=== PATIENT | female | born 1940 | race Caucasian/White ===

== ENCOUNTER 2016-12-06 22:05 | Emergency (ER) | payer MEDICARE, BC ==
[~2016-12-06 22:05] MED LIST: ADVAIR DIS1 PUFF/DO1 IH; ASA325 MG PO; ATIVAN-DPS0.5 MG PO; BROVANA15 MCG/2 M IH; CALCIUM 600 +1 EA14 PO; CEPACOL SORE T1 EAC1 PO; DELSYM30 MG/5 ML PO; DELTASONE DPS1 MG PO; DELTASONE DPS20 MG PO; DULCOLAX5 MG PO; DUONEB DPS3 ML IH; ELAVIL-DPS25 MG PO; LASIX DPS20 MG PO; LEVAQUIN DPS500 MG PO; LEXAPRO DPS10 MG PO; LIDODERM PATC1 PATCH TP; LORTAB 7.5-3251 EACH PO; MAGNESIUM OTC PO; METOPROLOL TART25 MG PO; MIRALAX PACKET17 GM PO; MIRAPEX DPS0.25 MG PO; MUCINEX1200 MG PO; MULTI-VITAMIN1 EACH PO; NEXIUM40 MG PO; POTASSIUM OTC PO; PULMICORT0.5 MG/21 IH; REGLAN DPS5 MG PO; ROBITUSSIN AC D30 ML PO; SENOKOT DPS8.6 MG PO; SENOKOT S1 TAB PO; SURFAK240 MG PO; TESSALON PERLE100 M1 PO; TUMS DPS500 MG PO; TYLENOL DPS325 MG PO; ULTRAM DPS50 MG PO; XANAX DPS0.5 MG PO; ZANAFLEX4 MG PO; ZANTAC DPS150 MG PO
--- NOTE | 2016-12-07 12:40 | ER ---
ADMIT: 12/06/2016 RM/LOC: ER [facility] MR#: [id number] [address] [address] WINDY NIELSEN [address] [place] [address] Emergency Room Report SEX: F AGE: 76 : 1940 DATE: 12/06/2016 For chief complaint, history of present illness, past medical history, medications, allergies, review of systems, including physical exam, please see my T-sheet. INTERIM HISTORY: The patient is a 76-year-old white female, who presents to the emergency room with decreased mental status and confusion. Her granddaughter, who cares for her at home, reports that she has a longstanding history of tracheomalacia and has been transferred to the [facility] many times in the past. She just had her stent cleaned last week and has been put on an antibiotic since. Family reports at 8:45, she was fine and talking. She said she had not been feeling well most of the day, but she was alert, she was talking, she was normal for baseline and at 9:15, granddaughter went to check on her and she was unresponsive where her O2 sats were 70%. They called 911 and brought her in. Since being here, she has remained unresponsive for me. She does have a history of hypercapnia. The patient does awake to deep sternal rub, but does not answer any questions at all for me. She is hypoxic on arrival. PHYSICAL EXAMINATION: VITAL SIGNS: She is on 15 L on a non-rebreather mask, and she has a heart rate of 93, respiratory rate of 19, blood pressure is 126/58, temp is 97.7. LUNGS: Coarse with wheezes throughout. LABORATORY AND IMAGING DATA: The patient was, as soon as possible, placed on BiPAP as this has been kind of the treatment for her in the past. Her CO2 on her ABGs came back at 137, pH was 7.1. WBC count is 11. Chemistries are really unremarkable. INR is 2.5. Chest x-ray actually shows a worsening, possibly a pulmonary edema. She does have congestion chronically with chronic interstitial changes on her chest x-ray. EMERGENCY ROOM COURSE: The patient received an IV. We did initiate BiPAP and ADMIT: 12/06/2016 RM/LOC: ER [facility] MR#: [id number] [address] [address] WINDY NIELSEN [address] [place] [address] Emergency Room Report SEX: F AGE: 76 : 1940 she has normalized her vital signs; blood pressure is 100/60, respiratory rate is 15, pulse rate is 85, pulse ox is 99%. The patient remains unresponsive. I did speak with the transfer center at [facility], Dr. Parada, who has agreed to accept the patient in transfer, who is the splunk developer. IMPRESSION: 1. Hypercapnia. 2. Respiratory distress with unresponsiveness. PLAN: Transfer to [facility]. Arrangements were made. A COBRA form was arranged. The patient is at level 5, with critical care time of approximately 40 minutes. The patient is stabilized at the time of transfer on BiPAP. KEVIN Horvath / Maurizio Long MD / telly JOB #: [id number] CC: Maurizio Long MD, Attending Physician Bigg Reis MD, Family Physician
[2017-02-01] MEDS ORDERED: DUONEB DPS3 ML IH (18:29)
[2017-02-01] MEDS ORDERED: TYLENOL EXTRA500 M1 GT (18:30)
[2017-02-01] MEDS ORDERED: XANAX DPS0.25 MG GT (18:30)
[2017-02-01] MEDS ORDERED: PROVENTIL HFA6.7 GM IH (18:30)
[2017-02-01] MEDS ORDERED: ACETADOTE D200 MG/ML IH (18:35)
[2017-02-01] MEDS ORDERED: AMIODARONE50 MG/1 M1 GT (18:36)
[2017-02-01] MEDS ORDERED: ASA CHILDREN'S81 MG GT (18:37)
[2017-02-01] MEDS ORDERED: VITAMIN C500 M4 GT (18:37)
[2017-02-01] MEDS ORDERED: ELAVIL-DPS25 MG GT (18:37)
[2017-02-01] MEDS ORDERED: FEOSOL-DPS325 MG GT (18:38)
[2017-02-01] MEDS ORDERED: CALTRATE 600 +1 EACH GT (18:38)
[2017-02-01] MEDS ORDERED: LEXAPRO DPS10 MG GT (18:38)
[2017-02-01] MEDS ORDERED: ROBITUSSIN100 MG/5 M GT (18:39)
[2017-02-01] MEDS ORDERED: LASIX DPS20 MG GT (18:39)
[2017-02-01] MEDS ORDERED: LOPRESSOR DPS50 MG GT (18:39)
[2017-02-01] MEDS ORDERED: OXY IR DPS5 MG GT (18:40)
[2017-02-01] MEDS ORDERED: THERA1 EACH GT (18:40)
[2017-02-01] MEDS ORDERED: MIRAPEX0.5 MG GT (18:41)
[2017-02-01] MEDS ORDERED: MIRALAX17 GM GT (18:41)
[2017-02-01] MEDS ORDERED: DELTASONE DPS5 MG GT (18:42)
[2017-02-01] MEDS ORDERED: COUMADIN DPS3 MG GT (18:43)
[2017-02-01] MEDS ORDERED: [UNRECOGNIZED DRUG - OTHER] SQ (18:43)
[2017-02-01] MEDS ORDERED: ZANAFLEX4 MG GT (18:43)
[2017-02-01] MEDS ORDERED: MEROPENEM1 GM IV (18:44)
[2017-02-24] MEDS ORDERED: CORDARONE DPS200 MG GT (18:24)
[2017-02-24] MEDS ORDERED: ELAVIL-DPS25 MG GT (18:24)
[2017-02-24] MEDS ORDERED: XANAX DPS0.25 MG PO (18:24)
[2017-02-24] MEDS ORDERED: ACETADOTE D200 MG/ML IH (18:24)
[2017-02-24] MEDS ORDERED: CALTRATE-600 W600 MG GT (18:25)
[2017-02-24] MEDS ORDERED: ASA CHILDREN'S81 MG GT (18:25)
[2017-02-24] MEDS ORDERED: FORTEO600 MCG/2. SQ (18:26)
[2017-02-24] MEDS ORDERED: LEXAPRO DPS10 MG GT (18:26)
[2017-02-24] MEDS ORDERED: FEOSOL-DPS325 MG GT (18:26)
[2017-02-24] MEDS ORDERED: LASIX DPS40 MG GT (18:27)
[2017-02-24] MEDS ORDERED: ROBITUSSIN100 MG/5 M GT (18:27)
[2017-02-24] MEDS ORDERED: LOPRESSOR DPS50 MG GT (18:28)
[2017-02-24] MEDS ORDERED: DUONEB DPS3 ML IH (18:28)
[2017-02-24] MEDS ORDERED: MIRALAX PACKET17 GM GT (18:28)
[2017-02-24] MEDS ORDERED: OXY IR DPS5 MG GT (18:29)
[2017-02-24] MEDS ORDERED: ZANAFLEX4 MG GT (18:29)
[2017-02-24] MEDS ORDERED: MIRAPEX0.5 MG GT (18:29)
[2017-02-24] MEDS ORDERED: THERA1 EACH PO (18:29)
[2017-02-24] MEDS ORDERED: ASCORBIC ACID500 MG GT (18:30)
[2017-02-24] MEDS ORDERED: PROVENTIL HFA6.7 GM IH (18:30)
[2017-02-24] MEDS ORDERED: TYLENOL EXTRA500 MG GT (18:30)
[2017-02-24] MEDS ORDERED: VITAMIN D31000 UNIT GT (18:31)
[2017-02-24] MEDS ORDERED: COUMADIN DPS3 MG GT (18:31)
[2017-02-24] MEDS ORDERED: COUMADIN1 MG GT (18:32)
[2017-02-24] MEDS ORDERED: COUMADIN6 MG GT (18:33)
[2017-02-24] MEDS ORDERED: TOBRAMYCIN300 MG/5 M IH (18:34)
[2017-02-24] MEDS ORDERED: PREDNISONE10 MG PO (18:36)
== END 2016-12-07 00:20 | disposition short-term general hospital (02) ==
LOC: ER 22:05
PROC: 0T9B70Z Drainage of Bladder with Drainage Device, Via Natural or Artificial Opening (ICD-10-PCS; principal; 2016-12-06)
DX: R06.89 Other abnormalities of breathing (principal); I10 Essential (primary) hypertension; Z88.8 Allergy status to other drugs, medicaments and biological substances; Z79.01 Long term (current) use of anticoagulants; Z79.899 Other long term (current) drug therapy

== ENCOUNTER → 2017-01-09 | Outpatient (CLI) | payer MEDICARE, BC ==
[~2017-01-09] MED LIST changes: +ACETADOTE D200 MG/ML IH; +AMIODARONE50 MG/1 M1 GT; +ASA CHILDREN'S81 MG GT; +ASCORBIC ACID500 MG GT; +CALTRATE 600 +1 EACH GT; +CALTRATE-600 W600 MG GT; +CORDARONE DPS200 MG GT; +COUMADIN DPS3 MG GT; +COUMADIN1 MG GT; +COUMADIN6 MG GT; +DELTASONE DPS5 MG GT; +ELAVIL-DPS25 MG GT; +FEOSOL-DPS325 MG GT; +FORTEO600 MCG/2. SQ; +LASIX DPS20 MG GT; +LASIX DPS40 MG GT; +LEXAPRO DPS10 MG GT; +LOPRESSOR DPS50 MG GT; +MEROPENEM1 GM IV; +MIRALAX PACKET17 GM GT; +MIRALAX17 GM GT; +MIRAPEX0.5 MG GT; +OXY IR DPS5 MG GT; +PREDNISONE10 MG PO; +PROVENTIL HFA6.7 GM IH; +ROBITUSSIN100 MG/5 M GT; +THERA1 EACH GT; +THERA1 EACH PO; +TOBRAMYCIN300 MG/5 M IH; +TYLENOL EXTRA500 M1 GT; +TYLENOL EXTRA500 MG GT; +VITAMIN C500 M4 GT; +VITAMIN D31000 UNIT GT; +XANAX DPS0.25 MG GT; +XANAX DPS0.25 MG PO; +ZANAFLEX4 MG GT; +[UNRECOGNIZED DRUG - OTHER] SQ
== END | disposition home or self-care (01) ==
LOC: RAD.S 10:16
DX: R13.12 Dysphagia, oropharyngeal phase (principal)

== ENCOUNTER 2017-01-23 21:11 | Inpatient (IN) | payer MEDICARE, BC ==
[~2017-01-23] VITALS: Ht 162.6 cm; Wt 61.9 kg
[~2017-01-23 21:11] MED LIST changes: -ACETADOTE D200 MG/ML IH; -AMIODARONE50 MG/1 M1 GT; -ASA CHILDREN'S81 MG GT; -ASCORBIC ACID500 MG GT; -CALTRATE 600 +1 EACH GT; -CALTRATE-600 W600 MG GT; -CORDARONE DPS200 MG GT; -COUMADIN DPS3 MG GT; -COUMADIN1 MG GT; -COUMADIN6 MG GT; -DELTASONE DPS5 MG GT; -ELAVIL-DPS25 MG GT; -FEOSOL-DPS325 MG GT; -FORTEO600 MCG/2. SQ; -LASIX DPS20 MG GT; -LASIX DPS40 MG GT; -LEXAPRO DPS10 MG GT; -LOPRESSOR DPS50 MG GT; -MEROPENEM1 GM IV; -MIRALAX PACKET17 GM GT; -MIRALAX17 GM GT; -MIRAPEX0.5 MG GT; -OXY IR DPS5 MG GT; -PREDNISONE10 MG PO; -PROVENTIL HFA6.7 GM IH; -ROBITUSSIN100 MG/5 M GT; -THERA1 EACH GT; -THERA1 EACH PO; -TOBRAMYCIN300 MG/5 M IH; -TYLENOL EXTRA500 M1 GT; -TYLENOL EXTRA500 MG GT; -VITAMIN C500 M4 GT; -VITAMIN D31000 UNIT GT; -XANAX DPS0.25 MG GT; -XANAX DPS0.25 MG PO; -ZANAFLEX4 MG GT; -[UNRECOGNIZED DRUG - OTHER] SQ
--- NOTE | 2017-01-24 07:27 | ER ---
ADMIT: 01/23/2017 RM/LOC: ER [facility] MR#: [id number] 2620 [facility] [address] [place], [place] [address] WINDY NIELSEN [address] [facility] [place] [address] Emergency Room Report SEX: F AGE: 76 : 1940 DATE: 01/23/2017 The patient is a 76-year-old female with O2 dependent COPD, hospitalized in November at [facility] for acute on chronic respiratory failure associated with Pseudomonas pneumonia. States early this morning she developed increasing cough, nausea, but no vomiting, fevers, or chills. Discussed case with Dr. Reis, who ultimately requested that she be evaluated, but the patient was reluctant due to her frequent hospitalizations. Exam remarkable for nontoxic, chronically ill-appearing female on chronic O2, decreased breath sounds with faint expiratory wheeze. Chest x-ray showed bibasilar atelectasis versus infiltrate, improved over recent hospitalization of November of this year. WBC 13.5, hemoglobin 11.7, lactic 2.0, CRP 8.75, glucose 160, procalcitonin 0.06. Troponin less than 0.015. BNP 324, INR 1.35. Blood gas is 5 L on BiPAP, pH 7.38, pCO2 of 65, PO2 of 62. EKG showed sinus tach, rate of [address]-T or Q-wave change. The patient was given 2 DuoNeb, Solu-Medrol, magnesium with improvement. Covered with vancomycin, Zosyn after cultures were obtained. The patient continued to have low O2 sats, requiring increased BiPAP support 14/6 with high-flow O2 to maintain sats in the mid 90s. Discussed case with Dr. Reis, who recommended transfer to [facility]. No beds are available at [facility], therefore discussed case with Dr. oDyle, braille typist at [facility], who agreed to accept and understands that the patient needs rigid interventional bronchoscopy if tracheomalacia stent needs to be replaced. The patient's last replacement was in August 2016, cleaned out most recent hospitalization at [facility] 2 months ago. The patient quit smoking in 2003 after 20-pack year history. The patient also suffers from GERD with dependent PEG feedings. The patient is transferred by [facility] in stable condition. Due to patient's presentation, findings, and intervention, 90 minutes of critical care is warranted. Miles Greer MD/ telly JOB #: [id number] CC: Miles Greer MD, Attending Physician Bigg Reis MD, Family Physician Micaela Doyle MD
--- NOTE | 2017-01-25 16:51 | HP ---
ADMIT: 01/24/2017 RM/LOC: 304 [facility] MR#: [id number] 2620 [facility] [address] [place] [phone] WINDY NIELSEN [address] [place] [address] History and Physical SEX: F AGE: 76 : 1940 DATE OF SERVICE: CHIEF COMPLAINT: Shortness of breath. HISTORY OF PRESENT ILLNESS: The patient is a 76-year-old female, extremely well known to me from clinic, who suffers from tracheomalacia, some bronchiectasis, has tracheal stent in place, recurrent pneumonia and respiratory failure. Over the last few days having increasing cough, increasing shortness of breath. This dramatically got worse yesterday afternoon. Oxygen sats were unable to be maintained at home greater than 90%. She presented to the emergency room. Initially it was planned on getting transferred to outside higher level of care for pulmonology care where a poultry cutter available. Subsequently, patient refused transfer, is admitted to the ICU on BiPAP. The patient reports decreasing shortness of breath, still weak, still tired, hungry. Has not been eating at all lately as she is essentially tube feed dependent due to her aspiration risk due to her large hiatal hernia. This has been a long ongoing issue. The patient otherwise denies any new pain. Chronic back pain only. No fevers. No chills. Only scant sputum production, very thick, unchanged in color to her. Has not been on any antibiotics in the last couple weeks. No vomiting. PAST MEDICAL HISTORY: 1. Tracheomalacia with tracheal stent in place. 2. Bronchiectasis. 3. COPD. 4. Hypertension. 5. History of coronary artery disease. 6. Diastolic heart failure, chronic. 7. PMR, on chronic steroids. 8. Severe hiatal hernia. 9. Hyperlipidemia. 10.Gastroparesis. 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 12.Had multiple compression fractures, vertebral. 13.Non ST elevation MS during prior hospitalization. 14.History of trigeminal neuralgia. 15.Atrial fibrillation, on chronic anticoagulation. 16.Severe osteoporosis. 17.Restless legs syndrome. 18.Depression. 19.Chronic hypoxic respiratory failure. MEDICATIONS: Please see list for full details. Includes: 1. DuoNeb. 2. Proventil. 3. Acetaminophen. 4. Alprazolam. 5. Mucomyst. 6. Amiodarone. ADMIT: 01/24/2017 RM/LOC: 304 [facility] MR#: [id number] [address] [address] WINDY NIELSEN [address] [place] [address] History and Physical SEX: F AGE: 76 : 1940 7. Amitriptyline. 8. Vitamin C. 9. Aspirin. 10.Calcium. 11.Lexapro. 12.Ferrous sulfate. 13.Lasix. 14.Guaifenesin. 15.Metoprolol. 16.Multivitamin. 17.Pramipexole. 18.Prednisone. 19.Teriparatide. 20.Tizanidine. 21.Warfarin. FAMILY HISTORY: Significant for heart disease in her father, arthritis in her mother. Breast cancer in a sister. Stroke in a grandmother. SOCIAL HISTORY: Tobacco use prior, none current. Lives at home with her granddaughter who is her caregiver essentially. Also lives there as well. REVIEW OF SYSTEMS: As per HPI. Otherwise, completely reviewed and negative. PHYSICAL EXAMINATION: VITAL SIGNS: Temperature 98.3, pulse 87, respiratory rate 17, blood pressure 109/58, O2 saturation 90% on 13 L BiPAP. GENERAL: She is alert and oriented x3. Conversational and pleasant as always. She is on BiPAP. HEENT: Normocephalic, atraumatic. Pupils are equal bilaterally. Dry mucous membranes. NECK: No lymphadenopathy. Trachea midline. LUNGS: Coarse expiratory rhonchi throughout bilaterally. Symmetric thoracic excursion. Barrel-chested. HEART: Regular rate and rhythm. No murmurs, rubs, or gallops. ABDOMEN: Soft, nontender, nondistended. Bowel sounds present. EXTREMITIES: No cyanosis, clubbing, or edema. MUSCULOSKELETAL: 5/5 strength in all 4 extremities. Repositions herself in bed reasonably well. NEUROLOGICAL: No focal deficits noted. Cranial nerves II through XII grossly intact. SKIN: No rashes noted. LABORATORY AND X-RAY DATA: Her blood gas last night and the ER admit was 7.38, pCO2 of 64, PO2 of 61. Currently at 7.41, pCO2 of 57, PO2 of 193 on the BiPAP. INR is 1.3 today. White count 13.5, hemoglobin 11.7, and platelets 350. Lactic acid was 2.0. BNP is 39. Lipase is normal. Procalcitonin 0.06. Chest x-ray reviewed, chronic interstitial markings, tracheal stent, bilateral ADMIT: 01/24/2017 RM/LOC: 304 [facility] MR#: [id number] [address] [address] WINDY NIELSEN [address] [place] [address] History and Physical SEX: F AGE: 76 : 1940 lung base atelectasis or pneumonia. Heart size upper limits of normal. ASSESSMENT/PLAN: 1. Pneumonia, likely gram-negative nona, possible drug resistant. 2. Tracheomalacia. 3. Acute on chronic hypoxic respiratory failure. 4. Atrial fibrillation. 5. History of diastolic heart failure. 6. PMR. 7. Dysphagia, tube feed dependent. PLAN: At this point in time, we will continue supportive care here. If she worsens at all, I strongly advocated that she get transferred somewhere where she can have a poultry cutter see her, ideally [facility] who has seen her multiple times in the past. Patient agreeable to this at this time. For now, we will keep her on the BiPAP and try some trials off it. We will restart her tube feeds. Continue on antibiotics, Merrem and vancomycin. Her sputum culture collected on Monday at the office is growing Gram negatives as well as Gram positives both. We will consult Infectious Disease. Question I wonder if inhaled tobramycin may be helpful for her as she has had Pseudomonas cultures in the past. I wonder if that may help prevent her from this happening again. Otherwise if she worsens, we will get her out somebody who may be able to do some management of tracheal stent. The patient is agreeable. Patient critically ill and continues in the ICU. Bigg Reis MD/ telly JOB #: [id number] CC: Bigg Reis, Attending Physician Bigg Reis, Family Physician
--- NOTE | 2017-01-27 10:17 | CO ---
ADMIT: 01/24/2017 RM/LOC: 304 [facility] MR#: [id number] [address] [address] WINDY QUINTEROS [address] [place] [address] Consultation SEX: F AGE: 76 : 1940 DATE OF CONSULTATION: 01/24/2017 ATTENDING PHYSICIAN: Bigg Reis CONSULTING PHYSICIAN: Carole Denny MD REASON FOR CONSULT: Recurrent pneumonia. Thank you, Dr. Reis, for the consult and involving me in this patient's care. HISTORY OF PRESENT ILLNESS: Ms. Quinteros is a 76-year-old woman with history of COPD on 2 L oxygen at home who presented to the ER yesterday with worsening shortness of breath and increased oxygen requirement. She was recently admitted at [facility] for acute on chronic hypoxic respiratory failure and also had pneumonia, likely Pseudomonas per the notes. She was admitted to ICU and got 1 dose of IV Solu-Medrol, currently on meropenem and vancomycin. She feels mildly better today and says her headache has resolved at this time. Her chest x-ray showed bibasilar atelectasis versus consolidation. Since last 1 year, she has had multiple hospitalization for pneumonia. She also reported cough which is chronic per the patient. PAST MEDICAL HISTORY: 1. Temporal arteritis. 2. Hypertension. 3. Diastolic dysfunction. 4. COPD. 5. Osteoporosis. 6. Adam's esophagus. PAST SURGICAL HISTORY: Includes bilateral hip replacement, wrist surgery, tubal ligation. ALLERGIES: NO KNOWN DRUG ALLERGIES. CURRENT MEDICATIONS: Include: 1. Meropenem 1 g q.8 hours. 2. Vancomycin 1 g q.12 hours. FAMILY HISTORY: Significant for breast cancer in her sister and history of stroke in a grandmother. SOCIAL HISTORY: The patient is and lives at home. Denies any smoking, alcohol, or recreational drug use. REVIEW OF SYSTEMS: A 10-point review of systems negative except as mentioned in HPI. PHYSICAL EXAMINATION: VITAL SIGNS: Current temperature 98.1, heart rate 94, respirations 16, blood pressure 115/78, and 100% on 15 L BiPAP. ADMIT: 01/24/2017 RM/LOC: 304 [facility] MR#: [id number] [address] [address] WINDY QUINTEROS [address] [place] [address] Consultation SEX: F AGE: 76 : 1940 GENERAL: No acute distress. HEENT: Head, normocephalic and atraumatic. Extraocular movements intact. CHEST: Coarse breath sounds bilaterally. CARDIOVASCULAR: S1, S2 heard. Regular rate and rhythm. ABDOMEN: Soft, mildly distended. Active bowel sounds. PEG tube intact. SKIN: No rash noted on exposed skin. NEURO: Normal affect. Memory intact. LABORATORY DATA: CBC shows white count of 13.5, hemoglobin 11.7, and platelets 350. CMP shows creatinine of 0.9. Normal AST and ALT. CRP is 8.74. ASSESSMENT: 1. Healthcare-associated pneumonia. I will continue with meropenem and vancomycin for now. We will check a sputum culture and sensitivity. Obtain the discharge summary from her recent hospitalization. We will also check a CT chest without contrast. 2. Recurrent pneumonias. We will check a total immunoglobulin levels and IgG subclasses. 3. Tracheomalacia status post stent. 4. Hypoxic respiratory failure. 5. Temporal arteritis on chronic steroids. Thank you for the consult and I will continue to follow the patient. Carole Denny MD/ telly JOB #: [id number] CC: Bigg Reis, Attending Physician Bigg Reis, Family Physician
--- NOTE | 2017-02-01 08:23 | DS ---
ADMIT: 01/24/2017 RM/LOC: 419 [facility] MR#: [id number] 2620 [facility] [address] [place] [address] WINDY NIELSEN [address] [place] [address] Discharge Summary SEX: F AGE: 76 : 1940 ADMISSION DATE: 01/24/2017 DISCHARGE DATE: 01/31/2017 CONSULTATION: Infectious Disease with Carole Denny MD. PROCEDURES: None. FINAL DIAGNOSES: 1. Multi-drug resistant pseudomonal pneumonia. 2. Rhinovirus. 3. Tracheomalacia. 4. Acute on chronic hypoxic respiratory failure. 5. Hiatal hernia. 6. Aspiration chronic. 7. Tube feed dependence. 8. Temporal arteritis and PMR (polymyalgia rheumatica), on chronic steroids and immunosuppression. 9. IgG deficiency, new diagnosis. 10.Atrial fibrillation. 11.Coronary artery disease. 12.Severe osteoporosis with history of compression fractures and chronic back pain. REASON FOR ADMISSION: The patient is a 76-year-old female who presented to the emergency room with severe hypoxia worsening. She was requiring BiPAP and in the ICU. Initial efforts were to transfer her but a bed was not available and she ultimately did not want transfer so was stabilized here. HOSPITAL COURSE: The patient was admitted. Placed in the ICU. On BiPAP. Ultimately able to be weaned from this. She actually had quite a bit of mucus plugging which caused some acute decompensation but this improved. Ultimately, her sputum grew out multi-drug resistant Pseudomonas. Infectious Disease was consulted. Started on meropenem which she was on initially at admit. Continued this. Overall, her sputum production decreased dramatically. She felt improved. Still very weak and tired. Tolerating tube feeds well. Her Coumadin was held, midline placed for outpatient IV antibiotics. Coumadin restarted. Tolerated all this well. Found to have a mildly decreased IgG level. Given some IgG in the hospital with plans of continuing this long-term as an outpatient per Infectious Disease. DISCHARGE INSTRUCTIONS: She will discharged to home. Please see list for ADMIT: 01/24/2017 RM/LOC: 419 [facility] MR#: [id number] [address] [address] WINDY NIELSEN [address] [place] [address] Discharge Summary SEX: F AGE: 76 : 1940 full discharge medications. Notably, she will be on a lower dose of Lasix only 20 mg, she will be on meropenem up until the 06 of February for a total of 14 days. She will follow up with Infectious Disease within the week. She will plan on having outpatient IVIG as an outpatient every four weeks per ID. She has required more oxygen. I think she has reached a new chronic state of requiring 6 L of oxygen at times. This seems to be her new chronic baseline and efforts were made for this to be available at home for her per high-flow. Otherwise, she did get some CPT during hospitalization of which she seemed to have some benefit but unable to qualify as an outpatient. This will be discontinued as an outpatient unless she continues to have issues. She will see me in the office in 7-10 days. Bigg Reis MD/ laineyg JOB #: [id number] CC: Bigg Reis MD, Attending Physician Bigg Reis MD, Family Physician
[2017-02-01] MEDS ORDERED: DUONEB DPS3 ML IH (18:29)
[2017-02-01] MEDS ORDERED: PROVENTIL HFA6.7 GM IH (18:30)
[2017-02-01] MEDS ORDERED: TYLENOL EXTRA500 M1 GT (18:30)
[2017-02-01] MEDS ORDERED: XANAX DPS0.25 MG GT (18:30)
[2017-02-01] MEDS ORDERED: ACETADOTE D200 MG/ML IH (18:35)
[2017-02-01] MEDS ORDERED: AMIODARONE50 MG/1 M1 GT (18:36)
[2017-02-01] MEDS ORDERED: ASA CHILDREN'S81 MG GT (18:37)
[2017-02-01] MEDS ORDERED: VITAMIN C500 M4 GT (18:37)
[2017-02-01] MEDS ORDERED: ELAVIL-DPS25 MG GT (18:37)
[2017-02-01] MEDS ORDERED: CALTRATE 600 +1 EACH GT (18:38)
[2017-02-01] MEDS ORDERED: FEOSOL-DPS325 MG GT (18:38)
[2017-02-01] MEDS ORDERED: LEXAPRO DPS10 MG GT (18:38)
[2017-02-01] MEDS ORDERED: ROBITUSSIN100 MG/5 M GT (18:39)
[2017-02-01] MEDS ORDERED: LOPRESSOR DPS50 MG GT (18:39)
[2017-02-01] MEDS ORDERED: LASIX DPS20 MG GT (18:39)
[2017-02-01] MEDS ORDERED: OXY IR DPS5 MG GT (18:40)
[2017-02-01] MEDS ORDERED: THERA1 EACH GT (18:40)
[2017-02-01] MEDS ORDERED: MIRAPEX0.5 MG GT (18:41)
[2017-02-01] MEDS ORDERED: MIRALAX17 GM GT (18:41)
[2017-02-01] MEDS ORDERED: DELTASONE DPS5 MG GT (18:42)
[2017-02-01] MEDS ORDERED: COUMADIN DPS3 MG GT (18:43)
[2017-02-01] MEDS ORDERED: [UNRECOGNIZED DRUG - OTHER] SQ (18:43)
[2017-02-01] MEDS ORDERED: ZANAFLEX4 MG GT (18:43)
[2017-02-01] MEDS ORDERED: MEROPENEM1 GM IV (18:44)
[2017-02-24] MEDS ORDERED: XANAX DPS0.25 MG PO (18:24)
[2017-02-24] MEDS ORDERED: ELAVIL-DPS25 MG GT (18:24)
[2017-02-24] MEDS ORDERED: ACETADOTE D200 MG/ML IH (18:24)
[2017-02-24] MEDS ORDERED: CORDARONE DPS200 MG GT (18:24)
[2017-02-24] MEDS ORDERED: ASA CHILDREN'S81 MG GT (18:25)
[2017-02-24] MEDS ORDERED: CALTRATE-600 W600 MG GT (18:25)
[2017-02-24] MEDS ORDERED: LEXAPRO DPS10 MG GT (18:26)
[2017-02-24] MEDS ORDERED: FORTEO600 MCG/2. SQ (18:26)
[2017-02-24] MEDS ORDERED: FEOSOL-DPS325 MG GT (18:26)
[2017-02-24] MEDS ORDERED: ROBITUSSIN100 MG/5 M GT (18:27)
[2017-02-24] MEDS ORDERED: LASIX DPS40 MG GT (18:27)
[2017-02-24] MEDS ORDERED: MIRALAX PACKET17 GM GT (18:28)
[2017-02-24] MEDS ORDERED: LOPRESSOR DPS50 MG GT (18:28)
[2017-02-24] MEDS ORDERED: DUONEB DPS3 ML IH (18:28)
[2017-02-24] MEDS ORDERED: MIRAPEX0.5 MG GT (18:29)
[2017-02-24] MEDS ORDERED: ZANAFLEX4 MG GT (18:29)
[2017-02-24] MEDS ORDERED: THERA1 EACH PO (18:29)
[2017-02-24] MEDS ORDERED: OXY IR DPS5 MG GT (18:29)
[2017-02-24] MEDS ORDERED: ASCORBIC ACID500 MG GT (18:30)
[2017-02-24] MEDS ORDERED: PROVENTIL HFA6.7 GM IH (18:30)
[2017-02-24] MEDS ORDERED: TYLENOL EXTRA500 MG GT (18:30)
[2017-02-24] MEDS ORDERED: VITAMIN D31000 UNIT GT (18:31)
[2017-02-24] MEDS ORDERED: COUMADIN DPS3 MG GT (18:31)
[2017-02-24] MEDS ORDERED: COUMADIN1 MG GT (18:32)
[2017-02-24] MEDS ORDERED: COUMADIN6 MG GT (18:33)
[2017-02-24] MEDS ORDERED: TOBRAMYCIN300 MG/5 M IH (18:34)
[2017-02-24] MEDS ORDERED: PREDNISONE10 MG PO (18:36)
== END 2017-01-31 17:52 | disposition home or self-care (01) | DRG 190 ==
LOC: ER 21:11 → 3ICU 01-24 02:34 → 4PCU 01-26 00:04
PROVIDERS: ADMIT Internal Medicine
PROC: 5A09557 Assistance with Respiratory Ventilation, Greater than 96 Consecutive Hours, Continuous Positive Airway Pressure (ICD-10-PCS; principal; 2017-01-24)
PROC: 3E0G76Z Introduction of Nutritional Substance into Upper GI, Via Natural or Artificial Opening (ICD-10-PCS; 2017-01-24)
DX: J44.0 Chronic obstructive pulmonary disease with (acute) lower respiratory infection (principal); J15.1 Pneumonia due to Pseudomonas; J96.21 Acute and chronic respiratory failure with hypoxia; L89.301 Pressure ulcer of unspecified buttock, stage 1; I11.0 Hypertensive heart disease with heart failure; D80.3 Selective deficiency of immunoglobulin G [IgG] subclasses; Z99.81 Dependence on supplemental oxygen; I50.32 Chronic diastolic (congestive) heart failure; K31.84 Gastroparesis; I48.91 Unspecified atrial fibrillation; J98.09 Other diseases of bronchus, not elsewhere classified; K21.9 Gastro-esophageal reflux disease without esophagitis; J39.8 Other specified diseases of upper respiratory tract; J47.9 Bronchiectasis, uncomplicated; D63.8 Anemia in other chronic diseases classified elsewhere; E87.6 Hypokalemia; K44.9 Diaphragmatic hernia without obstruction or gangrene; M54.9 Dorsalgia, unspecified; G25.81 Restless legs syndrome; M81.0 Age-related osteoporosis without current pathological fracture; G50.0 Trigeminal neuralgia; G89.29 Other chronic pain; I25.10 Atherosclerotic heart disease of native coronary artery without angina pectoris; M35.3 Polymyalgia rheumatica; R13.10 Dysphagia, unspecified; E78.5 Hyperlipidemia, unspecified; K22.70 Barrett's esophagus without dysplasia; I25.2 Old myocardial infarction; F32.9 Major depressive disorder, single episode, unspecified; Z87.891 Personal history of nicotine dependence; Z93.1 Gastrostomy status; Z96.89 Presence of other specified functional implants; Z79.01 Long term (current) use of anticoagulants; Z79.52 Long term (current) use of systemic steroids; Z96.643 Presence of artificial hip joint, bilateral

== ENCOUNTER 2017-02-18 02:51 | Inpatient (IN) | payer MEDICARE, BC ==
[~2017-02-18] VITALS: Ht 162.6 cm; Wt 66.2 kg
[~2017-02-18 02:51] MED LIST changes: +ACETADOTE D200 MG/ML IH; +AMIODARONE50 MG/1 M1 GT; +ASA CHILDREN'S81 MG GT; +CALTRATE 600 +1 EACH GT; +COUMADIN DPS3 MG GT; +DELTASONE DPS5 MG GT; +ELAVIL-DPS25 MG GT; +FEOSOL-DPS325 MG GT; +LASIX DPS20 MG GT; +LEXAPRO DPS10 MG GT; +LOPRESSOR DPS50 MG GT; +MEROPENEM1 GM IV; +MIRALAX17 GM GT; +MIRAPEX0.5 MG GT; +OXY IR DPS5 MG GT; +PROVENTIL HFA6.7 GM IH; +ROBITUSSIN100 MG/5 M GT; +THERA1 EACH GT; +TYLENOL EXTRA500 M1 GT; +VITAMIN C500 M4 GT; +XANAX DPS0.25 MG GT; +ZANAFLEX4 MG GT; +[UNRECOGNIZED DRUG - OTHER] SQ
--- NOTE | 2017-02-19 01:37 | ER ---
ADMIT: 02/18/2017 RM/LOC: ER [facility] MR#: [id number] [address] [place], [place] [address] WINDY NIELSEN [address] [place] [address] Emergency Room Report SEX: F AGE: 76 : 1940 DATE: 02/18/2017 CHIEF COMPLAINT: Decreased level of alertness, low O2 sats. HISTORY OF PRESENT ILLNESS: The patient is a 76-year-old lady with multiple medical problems, who is brought in by EMS after family called because they found her unresponsive. When EMS arrived, her sats were in the 60s and she would not respond for them. They were told that she has tracheomalacia and tracheal stent and cannot be intubated, so they went ahead and started her on BiPAP despite her decreased level of alertness. She was given Narcan without really any change before she was transported. She was also given albuterol, Lasix, and continued on BiPAP en route. When the patient got to the Emergency Department, she was still minimally responsive. Would not answer questions or follow commands. Her sats had improved and was in the 90s on BiPAP. But still quite tachypneic. The patient was not able to provide any history whatsoever. Granddaughters did arrive later and states they had seen her around 10:30 in the evening and she was normal at that time and had had a normal day before that. She had a hospitalization from 01/24 to 02/02 at [place] for pneumonia, which was determined a multi-drug resistant pseudomonal pneumonia and respiratory failure. She was discharged home on antibiotics and 6 L of O2 all the time. PAST MEDICAL HISTORY: Significant for CHF, atrial fibrillation, severe COPD, tracheomalacia, recurrent pneumonia, respiratory failure, Adam esophagus, and depression. PAST SURGICAL HISTORY: She has had a stent in her trachea and also gets her feeds through a feeding tube. MEDICATIONS: See nurse's note. She is on Coumadin. ALLERGIES: SEE NURSE'S NOTE. SOCIAL HISTORY: Lives at home with family. Does not smoke, drink, or use drugs. PHYSICAL EXAMINATION: See T-sheet for complete physical exam. In general, the patient is not alert. She is lethargic. She does not follow commands, but does have purposeful movement in all 4 extremities. She did not verbalize initially on her presentation, but later stay, would answer a few simple questions, so it appears her cognition is intact. Respiratory status shows she is in respiratory distress with bilateral rhonchi, more notable on the right than the left and she is quite tachypneic. Chest x-ray shows what looks like a right-sided infiltrate. LABORATORY DATA: White count is 8.7, hemoglobin of 11.3, carbon dioxide is 44, BUN 25, glucose 130, and creatinine 0.9. Cardiac enzymes are negative x1. BNP is 558. INR is 1.62. Lactic acid is 1.00. ABG on BiPAP shows a pH 7.28, pCO2 of 102, and a PO2 of 61. EKG shows sinus rhythm with a rate of 90, no ADMIT: 02/18/2017 RM/LOC: [facility] MR#: [id number] [address] [place] [phone] WINDY NIELSEN [address] [place] [address] Emergency Room Report SEX: F AGE: 76 : [address]-elevation or acute IN. EMERGENCY DEPARTMENT COURSE: The patient presented, she was in respiratory distress. We did go ahead and get her breathing treatment Solu-Medrol, kept her on BiPAP as unable to consider intubation to this patient due to her tracheal stent. She began having some improvement in her respiratory status. She was also given Mucomyst while in the ER. I had considered getting the patient transferred to [facility] as she has had much of her care there but at this point, I am uncomfortable with her overall respiratory status and my inability to intubate the patient and the fact that the two options we have for transportation. I do not have BiPAP available unless she was flown by helicopter. At this point, I will be keeping the patient in our ICU and she was given a dose of antibiotics in the Emergency Department. I spoke to Dr. Toney as she normally sees Dr. Reis, and he graciously agrees to admit the patient for further management of her respiratory issues at this time. She is admitted in critical condition. IMPRESSION: 1. Pneumonia. 2. Respiratory failure with hypoxia. 3. Possible aspiration. 4. Atrial fibrillation. 5. Decreased level of alertness. 6. Hypoxemia. One hour of critical care time was spent on this patient. Brayden Reyes MD/ telly JOB #: [id number] CC: Brayden Reyes MD, Attending Physician
--- NOTE | 2017-02-20 07:38 | CO ---
ADMIT: 02/18/2017 RM/LOC: 314 [facility] MR#: [id number] [address] [address] WIDNY QUINTEROS [address] [place] [address] Consultation SEX: F AGE: 76 : 1940 DATE OF CONSULTATION: 02/19/2017 ATTENDING PHYSICIAN: Bigg Reis CONSULTING PHYSICIAN: Osiel Casas MD HISTORY OF PRESENT ILLNESS: Ms. Quinteros is a pleasant, unfortunate, 76-year-old, white female, with history of multiple medical problems, including COPD, bronchiectasis, and tracheobronchomalacia. She has had previous tracheal stent placed some time ago. Also, has history of recurrent Pseudomonas pneumonia, most recently was hospitalized at [place] for recurrent multi- drug resistant Pseudomonas with two strains of Pseudomonas, 01/24 through the 01/31. She was discharged on meropenem, and finished this on the 02/07. She was admitted through the emergency room with decreased level of consciousness. She was found at home by her granddaughter, and was described as being "unresponsive." She was brought into The Emergency Department with a pCO2 of 104. She was placed on BiPAP, and somewhat improvement of her blood gases, was seen in consultation. At the time she was seen, she was currently awake, alert, and oriented. Did not complain of any pain. She was not feeling short of breath, though still on fairly high levels of BiPAP. PAST MEDICAL HISTORY: Quite extensive and reviewed in the electronic medical records. These include; history of COPD, bronchiectasis, tracheobronchomalacia. She also has previous history of hypertension, congestive heart failure with diastolic dysfunction, gastroesophageal reflux with history of Adam's esophagus. She has also had previous temporal arthritis. She has had previous bilateral hip replacement. ALLERGIES: SHE HAS NO KNOWN MEDICAL ALLERGIES. HOME MEDICATIONS: Reviewed in electronic medical records, indicate: 1. Mucomyst nebulized t.i.d. 2. Amiodarone 200 mg daily. 3. Alprazolam 0.5 mg p.r.n. 4. Amitriptyline 25 mg at bedtime. 5. Aspirin 81 mg daily. 6. Caltrate 1200 mg daily. 7. Lexapro 10 mg daily. 8. Ferrous sulfate 325 mg daily. 9. Forteo 20 mcg subcu daily. 10.Furosemide 20 mg daily. 11.Guaifenesin 400 mg t.i.d. 12.Nebulizer treatments 4 times a day and as needed. 13.Metoprolol tartrate 50 mg b.i.d. ADMIT: 02/18/2017 RM/LOC: 314 [facility] MR#: [id number] [address] [address] WINDY QUINTEROS [address] [place] [address] Consultation SEX: F AGE: 76 : 1940 14.MiraLax 17 g b.i.d. 15.Multivitamin daily. 16.Oxycodone 7.5 mg every 4 hours as needed. 17.Mirapex 0.5 mg at bedtime. 18.Prednisone 10 mg daily. 19.Tizanidine 4 mg t.i.d. 20.Coumadin. 21.Vitamin C. 22.Vitamin D3. SOCIAL HISTORY: She is , lives at home. She is a nonsmoker. FAMILY HISTORY: Noncontributory, though her sister had a history of breast cancer, and grandmother had a stroke REVIEW OF SYSTEMS: As above. All organ systems reviewed. Significant positives and negatives discussed above. PHYSICAL EXAMINATION: VITAL SIGNS: Currently afebrile, temperature of 97.9. Blood pressure 113/47, pulse of 71. Oxygen saturation, currently 97% on BiPAP. GENERAL: This is an elderly, frail, chronically ill-appearing, white female, currently on BiPAP in no acute respiratory distress while on BiPAP. HEENT: Shows head to be normocephalic and atraumatic. Pupils equal and reactive. She has periorbital edema. NECK: Supple. CHEST: Reveals bilateral rhonchi and wheezes more prominent on the right than on the left. HEART: Regular, tachycardic, no murmur. ABDOMEN: Soft, nondistended, nontender without organomegaly or masses. PEG tube is in place. EXTREMITIES: Showed significant muscle atrophy. Trace of peripheral edema. Number of ecchymotic areas on her extremities. LABORATORY AND X-RAY DATA: Lab and x-rays were reviewed. Chest x-ray shows actually improved aeration of the right lower lobe compared to her last hospitalization. However, she sounds much worse than her x-ray would indicate. Arterial blood gases this morning, show pH of 7.42, pCO2 of 54, PO2 of 102 on 40% BiPAP. ASSESSMENT: She has acute on chronic hypercapnic and hypoxic respiratory failure. Currently, she is much more awake and alert. We will have her continue the BiPAP, and then come off the BiPAP and if we can maintain adequate saturations on low-flow or even high-flow oxygen, we will use that, and then the BiPAP possibly at night and then as needed during the daytime. She has recent hospitalization with multi-drug resistant Pseudomonas and at least two strains were identified. She completed a course of meropenem, is ADMIT: 02/18/2017 RM/LOC: 314 [facility] MR#: [id number] [address] [address] WINDY QUINTEROS [address] [place] [address] Consultation SEX: F AGE: 76 : 1940 back on the meropenem. I am also going to add inhaled tobramycin 300 mg twice a day, they help with the Pseudomonas, but also as potentially prophylactic use. She has history of severe chronic obstructive pulmonary disease with tracheobronchomalacia and bronchiectasis, with a tracheal stent in place. I suspect that the tracheal stent is the source of her chronic and recurrent infections. Generally speaking, when these stents become infected, they will never really able to be sterilized. However, removal at this point in time would be extremely difficult (impossible), and recurrent infection is going to lead eventually to her demise. May be worthwhile to obtain a palliative care or hospice consultation and go in that direction. She has history of gastroesophageal reflux, recurrent aspiration, and PEG tube in place. May be able to start some tube feeding shortly though she has not had a bowel movement in several days according to the patient. She has significant debility secondary to her above problems. Discussion was held with the family (one of her granddaughters) and recommended that we certainly could consider hospice care. We will follow with you and further recommendations to follow. Osiel Casas MD/ telly JOB #: [id number] CC: Bigg Reis, Attending Physician Bigg Reis, Family Physician
[2017-02-24] MEDS ORDERED: ELAVIL-DPS25 MG GT (18:24)
[2017-02-24] MEDS ORDERED: CORDARONE DPS200 MG GT (18:24)
[2017-02-24] MEDS ORDERED: XANAX DPS0.25 MG PO (18:24)
[2017-02-24] MEDS ORDERED: ACETADOTE D200 MG/ML IH (18:24)
[2017-02-24] MEDS ORDERED: ASA CHILDREN'S81 MG GT (18:25)
[2017-02-24] MEDS ORDERED: CALTRATE-600 W600 MG GT (18:25)
[2017-02-24] MEDS ORDERED: FEOSOL-DPS325 MG GT (18:26)
[2017-02-24] MEDS ORDERED: FORTEO600 MCG/2. SQ (18:26)
[2017-02-24] MEDS ORDERED: LEXAPRO DPS10 MG GT (18:26)
[2017-02-24] MEDS ORDERED: LASIX DPS40 MG GT (18:27)
[2017-02-24] MEDS ORDERED: ROBITUSSIN100 MG/5 M GT (18:27)
[2017-02-24] MEDS ORDERED: DUONEB DPS3 ML IH (18:28)
[2017-02-24] MEDS ORDERED: LOPRESSOR DPS50 MG GT (18:28)
[2017-02-24] MEDS ORDERED: MIRALAX PACKET17 GM GT (18:28)
[2017-02-24] MEDS ORDERED: OXY IR DPS5 MG GT (18:29)
[2017-02-24] MEDS ORDERED: MIRAPEX0.5 MG GT (18:29)
[2017-02-24] MEDS ORDERED: THERA1 EACH PO (18:29)
[2017-02-24] MEDS ORDERED: ZANAFLEX4 MG GT (18:29)
[2017-02-24] MEDS ORDERED: TYLENOL EXTRA500 MG GT (18:30)
[2017-02-24] MEDS ORDERED: ASCORBIC ACID500 MG GT (18:30)
[2017-02-24] MEDS ORDERED: PROVENTIL HFA6.7 GM IH (18:30)
[2017-02-24] MEDS ORDERED: VITAMIN D31000 UNIT GT (18:31)
[2017-02-24] MEDS ORDERED: COUMADIN DPS3 MG GT (18:31)
[2017-02-24] MEDS ORDERED: COUMADIN1 MG GT (18:32)
[2017-02-24] MEDS ORDERED: COUMADIN6 MG GT (18:33)
[2017-02-24] MEDS ORDERED: TOBRAMYCIN300 MG/5 M IH (18:34)
[2017-02-24] MEDS ORDERED: PREDNISONE10 MG PO (18:36)
--- NOTE | 2017-02-27 07:28 | DS ---
ADMIT: 02/18/2017 RM/LOC: 410 [facility] MR#: [id number] [address] [address] WINDY NIELSEN [address] [place] [address] Discharge Summary SEX: F AGE: 76 : 1940 ADMISSION DATE: 02/18/2017 DISCHARGE DATE: 02/23/2017 DISCHARGE DIAGNOSES: 1. Acute on chronic hypoxic and hypercapnic respiratory failure. 2. Chronic aspiration. 3. Recent Pseudomonas pneumonia. 4. Severe COPD (chronic obstructive pulmonary disease). 5. Tracheomalacia, status post tracheal stenting. 6. Atrial fibrillation, on chronic anticoagulation. 7. Hypokalemia, resolved. 8. Hypertension. 9. Chronic diastolic heart failure. 10.Gastroesophageal reflux disease. 11.History of Adam's. 12.History of PMR (polymyalgia rheumatica)/temporal arteritis. 13.Anxiety/depression. 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 CONSULTATIONS: Pulmonology with Osiel Casas MD. PROCEDURES: None. REASON FOR ADMISSION: A very pleasant, 76-year-old female, with chronic pulmonary issues including COPD, bronchiectasis, tracheomalacia status post stenting presented to [facility] on the day of admission after being found down at home by her family. She was noted to have right- sided infiltrates, questionable for aspiration and a pCO2 of greater than 100. She was admitted for further evaluation and treatment. For complete details, please see H and P dictated on the day of admission. HOSPITAL COURSE: At the time of admission, the patient was placed in an ICU bed. With recent Pseudomonas pneumonia she was started back on meropenem. She was continued on BiPAP therapy and BiPAP pressures were titrated. Pulmonology was consulted and her pCO2 came down nicely. We used intermittent nocturnal BiPAP and pH improved along with her PCO2. We kept her n.p.o. She was seen by PT and OT. She received IV steroids along with those IV antibiotics and also aggressive pulmonary toilet. Initially, there was some concern that she would need to be intubated but with her response to BiPAP titration overall she did well. As mentioned, she was seen by PT and OT. She did have some transient hypotension that was resolved with IV fluid boluses. Pulmonology recommended 28 days of tobramycin inhaled and mentioned consideration for every other month therapy. Wonders if she is chronically infected. She continued with meropenem which the pseudomonas as sensitive to during her hospital stay. As mentioned, she ambulated and ate. Her steroids were changed from IV to oral. We got her set up for Trilogy with her chronic hypercapnic respiratory failure. We got her set up for Trilogy home vent to be used in a BiPAP mode at home. She was continued on her amiodarone and anticoagulation throughout her hospital stay. Her INRs were watched closely. ADMIT: 02/18/2017 RM/LOC: 410 [facility] MR#: [id number] [address] [place] [id number] WINDY NIELSEN [address] [place] [address] Discharge Summary SEX: F AGE: 76 : 1940 She had some transient hypokalemia that was replaced through her PEG tube during her hospital stay. The patient was afebrile. Her chest x-rays improved. It was thought she would be ready for discharge on 02/23. Her discharge medications are found on her discharge medication sheet. She will continue to finish a 28 day course of tobramycin. She inhaled tobramycin. She will taper her steroids, otherwise continue with the remainder of her home medications. She will have follow up with Dr. Reis in the next 10-14 days. She will have an INR done at our office within the next week. She will follow up with Dr. Zambrano as scheduled and I will forward the history and physical, consult notes and x-ray images to him at [facility] for evaluation. Her activity will be as tolerated. Her diet will be mechanical soft with nectar thick per prior speech therapy recommendations with ongoing tube feeds as per prior. Arturo Toney MD/ vanessa JOB #: [id number] CC: Bigg Reis MD, Attending Physician Bigg Reis MD, Family Physician MD Aamir Gao MD
--- NOTE | 2017-02-27 07:28 | HP ---
ADMIT: 02/18/2017 RM/LOC: 314 [facility] MR#: [id number] [address] [address] WINDY NIELSEN [address] [place] [address] History and Physical SEX: F AGE: 76 : 1940 DATE OF SERVICE: CHIEF COMPLAINT: Unresponsiveness. HISTORY OF PRESENT ILLNESS: The patient is a very pleasant, 76-year-old female. She has a past medical history of COPD/bronchiectasis/tracheomalacia status post tracheal stenting, recently diagnosed immunoglobulin deficiency as well as recurrent pneumonias who had a recent hospitalization here at [facility] from the 24 of January to the 31 of January with noted respiratory failure and multi-drug resistant Pseudomonas pneumonia. The patient recently was seen in the office and just finished up a course of meropenem on the . Apparently, she had been doing okay at home. Does not know if she quite ever recovered from that pneumonia, but has been doing okay. Her granddaughters had checked on her in the late evening and she was fine and checked back on her later and she was completely unresponsive. She was brought in by squad and found to have a pCO2 of 104. She could not be intubated due to her tracheal stenting. She was started on BiPAP and aggressive nebulized treatments and did come around, wake up, and was able to answer a few questions, respond, and she was admitted for further evaluation and treatment. As I am seeing her in the ICU, the patient notes she really does not remember anything. She currently denies any pain at this time, just states that her mouth is a little dry. For past medical history, social history and family history, please see previously dictated H and P, discharge summary. CURRENT HOME MEDICATIONS: Include: 1. Mucomyst. 2. Amiodarone. 3. Alprazolam. 4. Amitriptyline. 5. Aspirin. 6. Caltrate. 7. Lexapro. 8. Ferrous sulfate. 9. Forteo. 10.Lasix. 11.Guaifenesin. 12.DuoNeb. 13.Metoprolol. 14.MiraLax. 15.Multivitamin. 16.Oxycodone. 17.Mirapex. 18.Prednisone. 19.Tizanidine. 20.Tylenol. 21.Ventolin. 22.Vitamin C. 23.Vitamin D. 24.Coumadin. ADMIT: 02/18/2017 RM/LOC: 314 [facility] MR#: [id number] 26[address] [facility] [address] [place] [id number] WNIDY NIELSEN [address] [place] [address] History and Physical SEX: F AGE: 76 : 1940 REVIEW OF SYSTEMS: As noted above. All systems reviewed and are negative. PHYSICAL EXAMINATION: VITAL SIGNS: 99.5, 91, 26, 138/68, she is saturating 97+ percent 90% FiO2 BiPAP. GENERAL: This is a very elderly, thin female. She is sitting in bed. She is awake and alert. She answers questions and follows commands. NECK: Supple. LUNGS: She is tachypneic. She sounds a little diminished at the bases, but I do also hear few rales. HEART: Regular. ABDOMEN: Soft, nontender, and nondistended. She has a G-tube in place. EXTREMITIES: Some trace edema. SKIN: Shows some scattered ecchymosis. LABORATORY DATA: Shows troponin 0.027. Her INR was 1.62. Her procalcitonin 0.05. Lactic was 1. Hemoglobin 11.3, white count is 8.7, and 390,000 platelets. Sodium 136, potassium 4.4, BUN is 25, and creatinine 0.9. Initial blood gas had a pH of 7.2 with pCO2 of 104. Her pH is improved to 7.33 with pCO2 of 93, PO2 of 53. Her chest x-ray shows she had a tracheal stent noted. She has infiltrates on the right side of her chest. The chest x-ray is a little rotated. EKG showed sinus rhythm at 90 beats per minute. I do not see anything acute noted. ASSESSMENT AND PLAN: 1. Acute on chronic hypoxic and hypercapnic respiratory failure. 2. Pneumonia/right-sided infiltrates with worry for resistant gram-positive and gram-negative organisms. 3. Recent multi-drug resistant Pseudomonas pneumonia. 4. History of recurrent aspiration. 5. Chronic obstructive pulmonary disease/bronchiectasis. 6. Immunoglobulin deficiency. 7. Tracheomalacia status post tracheal stenting. ADMIT: 02/18/2017 RM/LOC: 314 [facility] MR#: [id number] [address] [address] WINDY NIELSEN [address] [place] [address] History and Physical SEX: F AGE: 76 : 1940 8. PMR/temporal arteritis on chronic steroid therapy. 9. Paroxysmal atrial fibrillation. 10.Chronic anticoagulation. At this time, the patient is awake and alert and appears to be improving. She denies any shortness of breath or pain. At this time, we will make some BiPAP changes. We will plan on continuing on broad-spectrum antibiotics. I reviewed her prior cultures and we are going to keep her on meropenem and Vanco right now. There was a question of whether she could have possibly aspirate as well. We will continue with aggressive pulmonary toilet. Pulmonology stopped and see the patient as well. We will keep her n.p.o., except for tube feeds right now, but we will let her wet her mouth. As mentioned plan IV steroids and we will follow closely here in the ICU. Arturo Toney MD/ telly JOB #: [id number] CC: Bigg Reis, Attending Physician Bigg Reis, Family Physician
== END 2017-02-23 16:00 | disposition home health service (06) | DRG 189 ==
LOC: ER 02:51 → 4PCU 04:20 → 3ICU 04:20 → 4PCU 02-20 13:22
PROVIDERS: ADMIT Internal Medicine
PROC: 3E0G76Z Introduction of Nutritional Substance into Upper GI, Via Natural or Artificial Opening (ICD-10-PCS; principal; 2017-02-19)
DX: J96.22 Acute and chronic respiratory failure with hypercapnia (principal); J15.1 Pneumonia due to Pseudomonas; I11.0 Hypertensive heart disease with heart failure; M31.5 Giant cell arteritis with polymyalgia rheumatica; D80.3 Selective deficiency of immunoglobulin G [IgG] subclasses; I50.32 Chronic diastolic (congestive) heart failure; J44.0 Chronic obstructive pulmonary disease with (acute) lower respiratory infection; J96.21 Acute and chronic respiratory failure with hypoxia; I48.0 Paroxysmal atrial fibrillation; J47.9 Bronchiectasis, uncomplicated; J98.09 Other diseases of bronchus, not elsewhere classified; E87.6 Hypokalemia; K21.9 Gastro-esophageal reflux disease without esophagitis; R06.82 Tachypnea, not elsewhere classified; J39.8 Other specified diseases of upper respiratory tract; K22.70 Barrett's esophagus without dysplasia; F32.9 Major depressive disorder, single episode, unspecified; Z96.89 Presence of other specified functional implants; Z79.01 Long term (current) use of anticoagulants; Z93.1 Gastrostomy status; Z79.82 Long term (current) use of aspirin; Z79.52 Long term (current) use of systemic steroids; Z96.643 Presence of artificial hip joint, bilateral